=== PATIENT | female | born 1975 | race Caucasian/White ===

== ENCOUNTER 2019-07-17 23:38 | Emergency (ER) | payer BC ==
[2019-07-18] MEDS: LORAZEPAM 1 MG TAB PO (01:07)
[2019-07-18] MEDS: LIDOCAINE 1% (MDV) 20 ML INJ SC (01:07)
== END 2019-07-18 01:42 | disposition home or self-care (01) ==
LOC: FTE 23:38
DX: T16.1XXA Foreign body in right ear, initial encounter (principal); X58.XXXA Exposure to other specified factors, initial encounter; Y92.9 Unspecified place or not applicable
CPT/HCPCS: 99283